=== PATIENT | female | born 1950 | race Caucasian/White ===

== ENCOUNTER 2020-05-17 12:26 | Observation (INO) ==
[2020-05-17] MEDS: DilTIAZem 50 MG/50 ML IV.SOLN IVC SCH ×2 (13:36→18:37)
[2020-05-17 13:49] LABS: Basophils # 0.1 K/mcL (0.0-0.2); Basophils % 0.4 %; Eosinophils # 0.2 K/mcL (0.0-0.6); Eosinophils % 1.5 %; Hematocrit 36.4 % (35.3-44.9); Hemoglobin 10.8 g/dL (11.5-15.4); Immature Granulocytes % 0.5 % (0-4); Lymphocytes # 1.9 K/mcL (0.6-4.6); Lymphocytes % 13.3 %; Mean Corpuscular HGB Conc 29.7 g/dL (31.6-35.5); Mean Corpuscular Hemoglobin 27.3 pg (28.0-33.3); Mean Corpuscular Volume 92.2 fL (83.0-100.0); Mean Platelet Volume 11.9 fL (9.4-12.4); Monocytes # 0.7 K/mcL (0.0-1.3); Monocytes % 4.7 %; Neutrophils # 11.2 K/mcL (1.6-8.9); Platelet Count 360 K/mcL (140-400); Red Blood Count 3.95 M/mcL (3.82-4.97); Red Cell Distribution Width 14.3 % (11.5-14.5); Segmented Neutrophils % 79.6 %
[2020-05-17 13:51] LABS: INR 1.5; Prothrombin Time 17.1 Seconds (9.4-12.1)
[2020-05-17 13:53] LABS: Activated Partial Thrombo Time 32.4 Seconds (26.0-36.0)
[2020-05-17] MEDS ORDERED: cefTRIAXone 1,000 MG in Water for inj. (sterile) 10 ML IVP ONE (14:00)
[2020-05-17] MEDS ORDERED: Azithromycin 500 MG in 0.9 % Sodium Chloride 250 ML IVPB ONE (14:00)
[2020-05-17 14:04] LABS: BUN/Creatinine Ratio 13 (6-26); Blood Urea Nitrogen 20 mg/dL (8-23); Calcium 9.5 mg/dL (8.6-10.3); Carbon Dioxide 26 mEq/L (23-29); Chloride 105 mEq/L (98-107); Glucose 113 mg/dL (70-105); Osmolality,Calculated 295 (280-300); Potassium 3.7 mEq/L (3.5-5.1); Sodium 141 mEq/L (136-145); eGFR For African Americans 40 (> 60); eGFR For Non-African Americans 33 (> 60)
[2020-05-17 14:06] LABS: Troponin I < 0.03 ng/mL (< 0.04)
[2020-05-17] MEDS ORDERED: Naloxone 0.4 MG/ML INJ IVP PRN (16:18)
[2020-05-17] MEDS ORDERED: carvediloL 25 MG TABLET PO ONE (16:24)
[2020-05-17] MEDS ORDERED: Furosemide 20 MG/2 ML VIAL IVP ONE (16:25)
[2020-05-17] MEDS ORDERED: Perflutren Lipid Microsphere 1.3 ML in 0.9 % Sodium Chloride 8.7 ML IVP PRN (16:30)
[2020-05-17] MEDS: hydrALAZINE 25 MG TABLET PO SCH (20:52)
[2020-05-18 02:13] LABS: Basophils % 0.4 %; Eosinophils # 0.3 K/mcL (0.0-0.6); Eosinophils % 2.7 %; Hemoglobin 9.4 g/dL (11.5-15.4); Immature Granulocytes % 0.3 % (0-4); Lymphocytes # 1.5 K/mcL (0.6-4.6); Mean Corpuscular HGB Conc 30.3 g/dL (31.6-35.5); Mean Corpuscular Volume 92.3 fL (83.0-100.0); Mean Platelet Volume 12.2 fL (9.4-12.4); Monocytes # 0.5 K/mcL (0.0-1.3); Monocytes % 5.1 %; Platelet Count 247 K/mcL (140-400); Red Blood Count 3.36 M/mcL (3.82-4.97); Red Cell Distribution Width 14.5 % (11.5-14.5); Segmented Neutrophils % 77.5 %; White Blood Count 10.4 K/mcL (4.3-11.1)
[2020-05-18 02:34] LABS: Calcium 8.4 mg/dL (8.6-10.3); Potassium 3.3 mEq/L (3.5-5.1)
[2020-05-18] MEDS: hydrALAZINE 25 MG TABLET PO SCH (03:41)
[2020-05-18] MEDS: DilTIAZem 50 MG/50 ML IV.SOLN IVC SCH ×3 (05:30→10:20)
[2020-05-18 07:53] LABS: Estimated Average Glucose 154 mg/dl
[2020-05-18] MEDS: carvediloL 25 MG TABLET PO SCH ×2 (07:57→15:55)
[2020-05-18] MEDS: Furosemide 20 MG TABLET PO SCH (07:58)
[2020-05-18] MEDS ORDERED: amLODIPine 5 MG TABLET PO SCH (09:00)
[2020-05-18] MEDS ORDERED: hydrALAZINE 25 MG TABLET PO PRN (10:30)
[2020-05-18] MEDS ORDERED: Furosemide 40 MG/4 ML VIAL IVP ONE (15:08)
[2020-05-18] MEDS ORDERED: *HR* Rivaroxaban 15 MG TABLET PO SCH (17:00)
[2020-05-19 05:30] LABS: Basophils % 0.4 %; Eosinophils # 0.5 K/mcL (0.0-0.6); Eosinophils % 5.1 %; Hematocrit 32.9 % (35.3-44.9); Immature Granulocytes % 0.3 % (0-4); Lymphocytes % 20.3 %; Mean Corpuscular HGB Conc 30.4 g/dL (31.6-35.5); Mean Corpuscular Hemoglobin 28.4 pg (28.0-33.3); Mean Corpuscular Volume 93.5 fL (83.0-100.0); Mean Platelet Volume 11.9 fL (9.4-12.4); Monocytes # 0.6 K/mcL (0.0-1.3); Monocytes % 6.6 %; Neutrophils # 6.5 K/mcL (1.6-8.9); Platelet Count 268 K/mcL (140-400); Red Blood Count 3.52 M/mcL (3.82-4.97); Red Cell Distribution Width 14.7 % (11.5-14.5); Segmented Neutrophils % 67.3 %; White Blood Count 9.7 K/mcL (4.3-11.1)
[2020-05-19 05:51] LABS: Calcium 8.7 mg/dL (8.6-10.3); Potassium 3.5 mEq/L (3.5-5.1)
[2020-05-19] MEDS: Furosemide 20 MG TABLET PO SCH (08:41)
[2020-05-19] MEDS: carvediloL 25 MG TABLET PO SCH (08:41)
[2020-05-19] MEDS ORDERED: DilTIAZem CD (24hr) 120 MG CAP.ER.24H PO SCH (09:00)
[2020-05-19 10:27] VITALS: BP 136/83
== END 2020-05-19 14:07 | disposition home or self-care (01) ==
LOC: 3BNU 12:26 → EMEROOARM 12:26 → 3BNU 16:08
PROVIDERS: ADMIT Internal Medicine; ATTEND Internal Medicine